=== PATIENT | male | born 1965 | race Caucasian/White ===

== ENCOUNTER 2020-11-06 21:20 | Emergency (ER) | payer OTHER ==
[~2020-11-06] VITALS: Ht 177.8 cm; Wt 94.0 kg
[2020-11-06] MEDS ORDERED: LISINOPRIL10 MG PO (21:40)
[2020-11-06] MEDS ORDERED: ASPIRIN81 MG PO (21:41)
[2020-11-06 21:52] LABS: HEMATOCRIT 45.9 % (39.0-50.0); HEMOGLOBIN 15.1 g/dl (14.0-18.0); IMMATURE GRANULOCYTES 0.4 % (0.0-5.0); MEAN CELL VOLUME 93.1 fL CALC (80.0-100.0); MEAN CORPUSCULAR HGB 30.6 pG CALC (26.0-32.0); MEAN CORPUSCULAR HGB CONC 32.9 g/dL CAL (32.0-36.0); NEUT# 4.63 thou/uL (1.82-7.42); RED BLOOD COUNT 4.93 mill/uL (4.70-6.10); RED CELL DISTRI WIDTH 11.2 % (11.5-15.5)
[2020-11-06 21:53] LABS: URINE BILIRUBIN - DIPSTICK NEGATIVE (NEGATIVE); URINE BLOOD DIPSTICK NEGATIVE (NEGATIVE); URINE COLOR YELLOW; URINE GLUCOSE - DIPSTICK NEGATIVE (NEGATIVE); URINE KETONE NEGATIVE (NEGATIVE); URINE LEUK ESTERASE NEGATIVE (NEGATIVE); URINE NITRITE - DIPSTICK NEGATIVE (Negative); URINE PH 5.5 (4.5-8.0); URINE PROTEIN - DIPSTICK NEGATIVE (NEG-TRACE); URINE SPECIFIC GRAVITY >=1.030; URINE UROBILINOGEN - DIPSTICK 0.2 E.U./dL (0.2)
[2020-11-06 22:11] LABS: ALBUMIN 4.3 g/dL (3.2-5.0); ALKALINE PHOSPHATASE 60 u/l (38-126); ANION GAP 12 (6-22 (CALC)); BILIRUBIN, TOTAL 0.4 mg/dL (0.0-1.4); BUN 17 mg/dL (9-20); BUN/CREATININE RATIO 13 (12-20 (CALC)); CARBON DIOXIDE 28 mmol/l (22-30); CHLORIDE 102 mmol/l (95-108); CREATININE 1.3 mg/dL (0.7-1.3); GFR 57 ML/MIN (>=60 (CALC)); GFR FOR AFR.AMER. > 60 ML/MIN (>=60 (CALC)); LIPASE 80 u/l (23-300); POTASSIUM 4.9 mmol/l (3.5-5.1); SGOT/AST 28 u/l (17-59); SODIUM 138 mmol/l (137-146); TOTAL PROTEIN 7.2 g/dL (6.3-8.2)
[2020-11-06] MEDS ORDERED: TAMSULOSIN0.4 MG PO (23:00)
[2020-11-06] MEDS ORDERED: ZOFRAN4 MG/TAB PO (23:00)
[2020-11-06] MEDS ORDERED: HYDROCO/APAP1 TA9 PO (23:00)
[2020-11-06 23:20] VITALS: BP 116/63
== END 2020-11-06 23:20 | disposition home or self-care (01) | DRG 694 ==
LOC: ED 21:20
DX: N13.2 Hydronephrosis with renal and ureteral calculous obstruction (principal); I10 Essential (primary) hypertension

== ENCOUNTER 2022-04-01 06:20 | Emergency (ER) | payer OTHER ==
[2022-04-01] VITALS (8 sets, daily range): BP systolic 124–149; BP diastolic 78–88
[~2022-04-01] VITALS: Ht 177.8 cm; Wt 93.0 kg
[~2022-04-01 06:20] MED LIST: ASPIRIN81 MG PO; HYDROCO/APAP1 TA9 PO; LISINOPRIL10 MG PO; TAMSULOSIN0.4 MG PO; ZOFRAN4 MG/TAB PO
[2022-04-01 06:55] LABS: URINE BILIRUBIN - DIPSTICK NEGATIVE (NEGATIVE); URINE BLOOD DIPSTICK NEGATIVE (NEGATIVE); URINE COLOR YELLOW; URINE GLUCOSE - DIPSTICK NEGATIVE (NEGATIVE); URINE KETONE NEGATIVE (NEGATIVE); URINE LEUK ESTERASE NEGATIVE (NEGATIVE); URINE PROTEIN - DIPSTICK NEGATIVE (NEG-TRACE); URINE SPECIFIC GRAVITY >=1.030; URINE UROBILINOGEN - DIPSTICK 0.2 E.U./dL (0.2)
[2022-04-01 06:56] LABS: URINE NITRITE - DIPSTICK NEGATIVE (Negative)
[2022-04-01 06:56] LABS: HEMATOCRIT 47.9 % (39.0-50.0); HEMOGLOBIN 15.5 g/dl (14.0-18.0); MEAN CELL VOLUME 95.8 fL CALC (80.0-100.0); MEAN CORPUSCULAR HGB CONC 32.4 g/dL CAL (32.0-36.0); NEUT# 2.52 thou/uL (1.82-7.42); RED CELL DISTRI WIDTH 11.2 % (11.5-15.5)
[2022-04-01 07:10] LABS: ALBUMIN 4.6 g/dL (3.2-5.0); ALKALINE PHOSPHATASE 67 u/l (38-126); ANION GAP 10 (6-22 (CALC)); BILIRUBIN, TOTAL 0.4 mg/dL (0.0-1.4); BUN 27 mg/dL (9-20); BUN/CREATININE RATIO 22 (12-20 (CALC)); CARBON DIOXIDE 31 mmol/l (22-30); CHLORIDE 105 mmol/l (95-108); CREATININE 1.2 mg/dL (0.7-1.3); GFR FOR AFR.AMER. > 60 ML/MIN (>=60 (CALC)); GFR OTHER RACES > 60 ML/MIN (>=60 (CALC)); POTASSIUM 4.2 mmol/l (3.5-5.1); SGOT/AST 31 u/l (17-59); SODIUM 141 mmol/l (137-146); TOTAL PROTEIN 7.9 g/dL (6.3-8.2)
[2022-04-01] MEDS ORDERED: TAMSULOSIN0.4 MG PO ×2 (09:32→10:01)
[2022-04-01] MEDS ORDERED: TORADOL PO ×2 (09:32→10:01)
[2022-04-01] MEDS ORDERED: HYDROCO/APAP1 TA9 PO ×2 (09:32→10:01)
== END 2022-04-01 10:08 | disposition home or self-care (01) | DRG 694 ==
LOC: ED 06:20
PROVIDERS: Family Medicine
DX: N13.2 Hydronephrosis with renal and ureteral calculous obstruction (principal); I10 Essential (primary) hypertension; Z87.442 Personal history of urinary calculi

== ENCOUNTER 2023-05-22 09:12 | Day surgery (SDC) | payer OTHER ==
[~2023-05-22] VITALS: Ht 177.8 cm; Wt 93.9 kg
[~2023-05-22 09:12] MED LIST changes: +ACETAMINOPHEN325 MG PO; +TORADOL PO; +[UNRECOGNIZED DRUG - OTHER] PO
[2023-05-22] MEDS ORDERED: PERCOCET 5/321 COMBO PO (11:12)
[2023-05-22 13:37] VITALS: BP 116/68
== END 2023-05-22 13:28 | disposition home or self-care (01) | DRG 352 ==
LOC: ORM 09:12
PROVIDERS: ATTEND Surgery
PROC: 0YUA4JZ Supplement Bilateral Inguinal Region with Synthetic Substitute, Percutaneous Endoscopic Approach (ICD-10-PCS; principal; 2023-05-22)
DX: K40.20 Bilateral inguinal hernia, without obstruction or gangrene, not specified as recurrent (principal); I10 Essential (primary) hypertension
CPT/HCPCS: C1781; J0131; J0690; J1100